=== PATIENT | male | born 1990 | race African-American/Black ===

== ENCOUNTER 2021-04-22 22:33 | Inpatient (IN) | payer MEDICARE, MEDICAID ==
[~2021-04-22] VITALS: Ht 190.5 cm; Wt 61.7 kg
[2021-04-23 00:04] LABS: BASOPHILS % 0.2 % (0.0-2.0); HEMATOCRIT. 40.3 % (42.0-52.0); HEMOGLOBIN. 14.3 g/dL (14.0-18.0); LYMPHOCYTES % 9.9 % (20.0-50.0); MEAN CORPUSCULAR HEMOGLOBIN 31.8 pg (28.0-32.0); MEAN CORPUSCULAR VOLUME 89.8 fL (80.0-94.0); MEAN PLATELET VOLUME 8.1 fl (7.4-10.4); MONOCYTES % 13.3 % (2.0-8.0); NEUTROPHILS % 76.6 % (40.0-76.0); PLATELET 220 x1000/uL (130-400); RED BLOOD CELL COUNT 4.49 mill/uL (4.7-6.1); RED CELL DISTRIBUTION WIDTH 13.5 % (11.6-14.6)
[2021-04-23 00:08] LABS: CHLORIDE 93 mEq/L (98-107)
[2021-04-23] MEDS ORDERED: MYCOC15 TP (00:10)
[2021-04-23] MEDS ORDERED: SODIUM CHLORIDE 0.9% 1,000 ML IV ONE (00:15)
[2021-04-23] MEDS ORDERED: FLUCONAZOLE 100MG TABLET PO ONE (00:30)
[2021-04-23] MEDS ORDERED: FLUCONAZOLE 150MG TABLET PO SCH (01:00)
[2021-04-23] MEDS ORDERED: KETOROLAC 30MG/ML VIAL IV ONE (01:45)
[2021-04-23] MEDS ORDERED: POTASSIUM CHLORIDE 20MEQ TABLET SR PO ONE (02:00)
[2021-04-23] MEDS ORDERED: LORAZEPAM 0.5MG TABLET PO PRN (08:15)
[2021-04-23] MEDS ORDERED: IPRATROPIUM/ALBUTEROL 0.5-3(2.5)MG/3ML NEB HHN PRN (08:15)
[2021-04-23] MEDS ORDERED: DOCUSATE SODIUM 100MG CAPSULE PO PRN (08:15)
[2021-04-23] MEDS ORDERED: CLONIDINE 0.1MG TABLET PO PRN (08:15)
[2021-04-23] MEDS ORDERED: ONDANSETRON HCL 4MG/2ML INJ IV PRN (08:15)
[2021-04-23 08:27] VITALS: BP 145/80
[2021-04-23] MEDS: HYDROCODONE/ACETAMINOPHEN 5/325MG TABLET PO PRN (11:08)
[2021-04-23 11:48] VITALS: BP 117/61
[2021-04-23 16:05] VITALS: BP 94/61
[2021-04-23 17:23] LABS: CLARITY URINE CLEAR (CLEAR); COLOR URINE ORANGE (YELLOW); KETONES URINE NEGATIVE (NEGATIVE); LEUKOCYTE ESTERASE URINE TRACE (NEGATIVE); NITRITE URINE NEGATIVE (NEGATIVE); OCCULT BLOOD URINE 3+ (NEGATIVE); PH URINE 6.5 (4.5-8.0); PROTEIN URINE 3+ (NEGATIVE); SPECIFIC GRAVITY URINE 1.016 (1.005-1.030)
[2021-04-23 17:36] LABS: *AMPHETAMINES SCREEN URINE NEGATIVE (NEGATIVE); *BARBITURATES SCREEN URINE NEGATIVE (NEGATIVE); *BENZODIAZEPINES SCREEN URINE NEGATIVE (NEGATIVE); *COCAINE SCREEN URINE NEGATIVE (NEGATIVE); CANNABINOID URINE SCREEN PRESUMTIVE POSITIVE (NEGATIVE); METHADONE URINE SCREEN NEGATIVE (NEGATIVE); OPIATES URINE SCREEN PRESUMTIVE POSITIVE (NEGATIVE); PHENCYCLIDINE URINE SCREEN NEGATIVE (NEGATIVE)
[2021-04-23 20:00] VITALS: BP 112/66
[2021-04-23] MEDS: ACETAMINOPHEN 325MG TABLET PO PRN (20:00)
[2021-04-23] MEDS: TRIAMCINOLONE ACETONIDE 0.025% OINT 15GM TOP SCH (20:19)
[2021-04-23 21:48] LABS: PHOSPHORUS 1.8 mg/dL (2.5-4.9)
[2021-04-24] VITALS (7 sets, daily range): BP systolic 104–132; BP diastolic 64–78
[2021-04-24] MEDS: ACETAMINOPHEN 325MG TABLET PO PRN ×4 (02:07→23:46)
[2021-04-24 06:38] LABS: HEMATOCRIT. 41.9 % (42.0-52.0); HEMOGLOBIN. 14.8 g/dL (14.0-18.0); MEAN CORPUSCULAR HEMOGLOBIN 32.2 pg (28.0-32.0); MEAN CORPUSCULAR VOLUME 91.3 fL (80.0-94.0); MEAN PLATELET VOLUME 9.1 fl (7.4-10.4); PLATELET 201 x1000/uL (130-400); RED BLOOD CELL COUNT 4.59 mill/uL (4.7-6.1); RED CELL DISTRIBUTION WIDTH 13.8 % (11.6-14.6)
[2021-04-24 07:21] LABS: CHLORIDE 96 mEq/L (98-107)
[2021-04-24] MEDS ORDERED: SODIUM PHOS,M-BASIC-D-BASIC 20 MM in DEXT 5% WATER 243.3333 ML IV SCH (10:00)
[2021-04-24] MEDS: HYDROCODONE/ACETAMINOPHEN 5/325MG TABLET PO PRN ×2 (10:03→19:03)
[2021-04-24] MEDS: TRIAMCINOLONE ACETONIDE 0.025% OINT 15GM TOP SCH ×2 (10:08→20:37)
[2021-04-24 13:06] LABS: PLATELET ESTIMATE NORMAL
[2021-04-24 15:18] LABS: HEPATITIS B SURFACE ANTIGEN NEGATIVE
[2021-04-24 15:48] LABS: HEPATITIS A AB IGM NEGATIVE (NEGATIVE)
[2021-04-24] MEDS: SODIUM CHLORIDE 0.9% 1,000 ML IV SCH ×2 (18:47→19:06)
[2021-04-24] MEDS: PIPERACILLIN/TAZOBACTAM 3.375G in DEXT 5% WATER 50ML IV SCH (18:48)
[2021-04-24] MEDS ORDERED: CEFTRIAXONE 2 G in DEXTROSE 5% WATER 50 ML IV SCH (20:00)
[2021-04-24] MEDS ORDERED: PIPERACILLIN/TAZOBACTAM 3.375 G/VIAL IV SCH (22:00)
[2021-04-25] MEDS: PIPERACILLIN/TAZOBACTAM 3.375G in DEXT 5% WATER 50ML IV SCH ×2 (02:44→12:57)
[2021-04-25 04:00] VITALS: BP 111/73
[2021-04-25 05:09] LABS: HIV SCREEN 4G Non Reactive (Non Reactive)
[2021-04-25 06:06] LABS: HEMATOCRIT. 39.9 % (42.0-52.0); HEMOGLOBIN. 13.7 g/dL (14.0-18.0); MEAN CORPUSCULAR HEMOGLOBIN 31.6 pg (28.0-32.0); MEAN CORPUSCULAR VOLUME 91.9 fL (80.0-94.0); MEAN PLATELET VOLUME 9.3 fl (7.4-10.4); PLATELET 233 x1000/uL (130-400); RED BLOOD CELL COUNT 4.34 mill/uL (4.7-6.1); RED CELL DISTRIBUTION WIDTH 14.4 % (11.6-14.6)
[2021-04-25 06:13] LABS: CHLORIDE 95 mEq/L (98-107)
[2021-04-25 06:22] LABS: PHOSPHORUS 2.4 mg/dL (2.5-4.9)
[2021-04-25 08:04] VITALS: BP 108/65
[2021-04-25] MEDS ORDERED: SODIUM CHLORIDE 0.9% 1,000 ML IV SCH (09:00)
[2021-04-25] MEDS: TRIAMCINOLONE ACETONIDE 0.025% OINT 15GM TOP SCH ×2 (09:17→21:41)
[2021-04-25] MEDS: SODIUM CHLORIDE 0.9% 1,000 ML IV SCH (09:18)
[2021-04-25] MEDS ORDERED: POTASSIUM-SODIUM PHOSPHATE POWDER PACKET PO NR (12:15)
[2021-04-25 12:30] VITALS: BP 111/70
[2021-04-25] MEDS ORDERED: IOHEXOL-300 100 ML BOTTLE ONE (14:41)
[2021-04-25 15:14] LABS: PLATELET ESTIMATE NORMAL
[2021-04-25] MEDS: MEROPENEM 1,000 MG in SODIUM CHLORIDE 0.9% 100 ML IV SCH (17:29)
[2021-04-25 20:00] VITALS: BP 114/64
[2021-04-26] VITALS: BP 112/61
[2021-04-26] MEDS: MEROPENEM 1,000 MG in SODIUM CHLORIDE 0.9% 100 ML IV SCH ×3 (00:27→17:48)
[2021-04-26] MEDS: SODIUM CHLORIDE 0.9% 1,000 ML IV SCH ×2 (00:28→13:50)
[2021-04-26 04:00] VITALS: BP 116/68
[2021-04-26 06:15] LABS: CHLORIDE 98 mEq/L (98-107)
[2021-04-26 06:22] LABS: HEMATOCRIT. 38.4 % (42.0-52.0); HEMOGLOBIN. 13.2 g/dL (14.0-18.0); MEAN CORPUSCULAR HEMOGLOBIN 31.5 pg (28.0-32.0); MEAN CORPUSCULAR VOLUME 91.2 fL (80.0-94.0); MEAN PLATELET VOLUME 9.1 fl (7.4-10.4); PLATELET 223 x1000/uL (130-400); RED BLOOD CELL COUNT 4.21 mill/uL (4.7-6.1); RED CELL DISTRIBUTION WIDTH 14.3 % (11.6-14.6)
[2021-04-26 06:23] LABS: AMYLASE 104 IU/L (25-115)
[2021-04-26 06:25] LABS: PHOSPHORUS 2.6 mg/dL (2.5-4.9)
[2021-04-26 08:00] VITALS: BP 107/64
[2021-04-26] MEDS: TRIAMCINOLONE ACETONIDE 0.025% OINT 15GM TOP SCH ×2 (08:36→22:30)
[2021-04-26] MEDS: HYDROCODONE/ACETAMINOPHEN 5/325MG TABLET PO PRN (08:38)
[2021-04-26] MEDS ORDERED: SODIUM CHLORIDE 0.9% 1,000 ML IV SCH (09:00)
[2021-04-26 12:00] VITALS: BP 102/47
[2021-04-26 13:12] LABS: ANTI-DNA DOUBLE STRANDED QUANT < 1 IU/mL (0-9)
[2021-04-26] MEDS: ACETAMINOPHEN 325MG TABLET PO PRN (13:51)
[2021-04-26 15:11] LABS: CREATINE KINASE 153279 IU/L (39-308)
[2021-04-26 16:00] VITALS: BP 106/67
[2021-04-26] MEDS ORDERED: PENICILLIN G BENZATHINE 2,400,000 UNITS/4ML SYR IM NR (17:00)
[2021-04-26 17:28] LABS: PLATELET ESTIMATE NORMAL
[2021-04-26 20:00] VITALS: BP 117/70
[2021-04-27] VITALS: BP 120/73
[2021-04-27] MEDS: MEROPENEM 1,000 MG in SODIUM CHLORIDE 0.9% 100 ML IV SCH ×4 (00:45→23:46)
[2021-04-27 04:00] VITALS: BP 109/69
[2021-04-27] MEDS: SODIUM CHLORIDE 0.9% 1,000 ML IV SCH ×3 (05:10→22:03)
[2021-04-27] MEDS: HYDROCODONE/ACETAMINOPHEN 5/325MG TABLET PO PRN (05:25)
[2021-04-27 06:47] LABS: CHLORIDE 99 mEq/L (98-107)
[2021-04-27 06:55] LABS: BASOPHILS % 0.2 % (0.0-2.0); HEMATOCRIT. 38.9 % (42.0-52.0); HEMOGLOBIN. 13.6 g/dL (14.0-18.0); LYMPHOCYTES % 9.4 % (20.0-50.0); MEAN CORPUSCULAR HEMOGLOBIN 31.8 pg (28.0-32.0); MEAN CORPUSCULAR VOLUME 90.8 fL (80.0-94.0); MEAN PLATELET VOLUME 8.9 fl (7.4-10.4); MONOCYTES % 8.4 % (2.0-8.0); PLATELET 271 x1000/uL (130-400); RED BLOOD CELL COUNT 4.28 mill/uL (4.7-6.1); RED CELL DISTRIBUTION WIDTH 14.5 % (11.6-14.6)
[2021-04-27 07:03] LABS: PHOSPHORUS 3.7 mg/dL (2.5-4.9)
[2021-04-27 07:04] LABS: T4 FREE 1.53 ng/dL (0.76-1.46)
[2021-04-27 08:00] VITALS: BP 102/60
[2021-04-27 08:59] LABS: CREATINE KINASE > 100000 IU/L (39-308)
[2021-04-27 09:07] LABS: ANA IFA Negative (.); GLOMERULAR BASEMENT MEMB AB 4 units (0-20)
[2021-04-27] MEDS: TRIAMCINOLONE ACETONIDE 0.025% OINT 15GM TOP SCH ×2 (10:28→22:03)
[2021-04-27 12:00] VITALS: BP 118/69
[2021-04-27] MEDS ORDERED: METHOTREXATE SODIUM 2 . 5MG TABLET PO SCH (13:00)
[2021-04-27 13:11] LABS: ANTI-MYELOPEROXIDASE AB < 9.0 U/mL (0.0-9.0); ANTI-PROTEINASE 3 ABS < 3.5 U/mL (0.0-3.5); ATYPICAL P-ANCA <1:20 titer (Neg:<1:20); CYTOPLASMIC C-ANCA <1:20 titer (Neg:<1:20); PERINUCLEAR P-ANCA <1:20 titer (Neg:<1:20)
[2021-04-27 13:11] LABS: EBV VIRAL CAPSID AB IGM <36.0 U/mL (0.0-35.9)
[2021-04-27] MEDS: METHYLPREDNISOLONE SOD SUCC 125 MG/2 ML VIAL IV SCH ×3 (13:56→23:46)
[2021-04-27 16:00] VITALS: BP 110/67
[2021-04-27 20:00] VITALS: BP 134/79
[2021-04-28] VITALS: BP 133/66
[2021-04-28 04:12] LABS: NEISSERIA GONORRHOEAE NAA Negative (Negative)
[2021-04-28] MEDS: METHYLPREDNISOLONE SOD SUCC 125 MG/2 ML VIAL IV SCH ×3 (06:46→16:45)
[2021-04-28] MEDS: SODIUM CHLORIDE 0.9% 1,000 ML IV SCH ×2 (06:46→16:53)
[2021-04-28 07:24] LABS: BASOPHILS % 0.3 % (0.0-2.0); HEMOGLOBIN. 13.4 g/dL (14.0-18.0); LYMPHOCYTES % 9.6 % (20.0-50.0); MEAN CORPUSCULAR HEMOGLOBIN 31.9 pg (28.0-32.0); MEAN CORPUSCULAR VOLUME 90.2 fL (80.0-94.0); MEAN PLATELET VOLUME 8.8 fl (7.4-10.4); MONOCYTES % 2.9 % (2.0-8.0); NEUTROPHILS % 87.2 % (40.0-76.0); PLATELET 335 x1000/uL (130-400); RED BLOOD CELL COUNT 4.21 mill/uL (4.7-6.1); RED CELL DISTRIBUTION WIDTH 14.7 % (11.6-14.6)
[2021-04-28 07:31] LABS: CHLORIDE 103 mEq/L (98-107)
[2021-04-28 07:50] LABS: PHOSPHORUS 3.4 mg/dL (2.5-4.9)
[2021-04-28 08:00] VITALS: BP 128/78
[2021-04-28] MEDS: FOLIC ACID 1MG TABLET PO SCH (08:58)
[2021-04-28] MEDS: MEROPENEM 1,000 MG in SODIUM CHLORIDE 0.9% 100 ML IV SCH ×2 (08:58→16:45)
[2021-04-28] MEDS: TRIAMCINOLONE ACETONIDE 0.025% OINT 15GM TOP SCH ×2 (08:59→20:28)
[2021-04-28] MEDS: METHOTREXATE SODIUM 2 . 5MG TABLET PO SCH ×3 (08:59→16:46)
[2021-04-28 10:02] LABS: CREATINE KINASE 97650 IU/L (39-308)
[2021-04-28] MEDS: HYDROCODONE/ACETAMINOPHEN 5/325MG TABLET PO PRN (12:55)
[2021-04-28 13:10] LABS: MYOGLOBIN SERUM 2646 ng/mL (28-72)
[2021-04-28] MEDS ORDERED: LOPERAMIDE HCL 2MG CAPSULE PO PRN (16:30)
[2021-04-28 20:00] VITALS: BP 119/67
[2021-04-29] VITALS: BP 138/90
[2021-04-29] MEDS: METHYLPREDNISOLONE SOD SUCC 125 MG/2 ML VIAL IV SCH ×5 (00:04→23:53)
[2021-04-29] MEDS: MEROPENEM 1,000 MG in SODIUM CHLORIDE 0.9% 100 ML IV SCH ×4 (00:04→23:53)
[2021-04-29] MEDS: SODIUM CHLORIDE 0.9% 1,000 ML IV SCH ×4 (00:08→21:36)
[2021-04-29 03:44] VITALS: BP 112/64
[2021-04-29 06:24] LABS: HEMATOCRIT. 37.9 % (42.0-52.0); HEMOGLOBIN. 13.1 g/dL (14.0-18.0); MEAN CORPUSCULAR HEMOGLOBIN 31.6 pg (28.0-32.0); MEAN CORPUSCULAR VOLUME 91.1 fL (80.0-94.0); MEAN PLATELET VOLUME 8.4 fl (7.4-10.4); PLATELET 458 x1000/uL (130-400); RED BLOOD CELL COUNT 4.16 mill/uL (4.7-6.1); RED CELL DISTRIBUTION WIDTH 14.9 % (11.6-14.6)
[2021-04-29 06:33] LABS: CHLORIDE 108 mEq/L (98-107)
[2021-04-29 06:39] LABS: PHOSPHORUS 3.9 mg/dL (2.5-4.9)
[2021-04-29 08:00] VITALS: BP 132/72
[2021-04-29 08:32] LABS: PLATELET ESTIMATE INCREASED
[2021-04-29 08:48] LABS: CREATINE KINASE 34761 IU/L (39-308)
[2021-04-29] MEDS: HYDROCODONE/ACETAMINOPHEN 5/325MG TABLET PO PRN (10:02)
[2021-04-29] MEDS: TRIAMCINOLONE ACETONIDE 0.025% OINT 15GM TOP SCH ×2 (10:03→21:36)
[2021-04-29] MEDS: FOLIC ACID 1MG TABLET PO SCH (10:03)
[2021-04-29 12:00] VITALS: BP 132/70
[2021-04-29 16:00] VITALS: BP 118/78
[2021-04-29 20:00] VITALS: BP 113/59
[2021-04-30] VITALS: BP 129/77
[2021-04-30] MEDS: HYDROCODONE/ACETAMINOPHEN 5/325MG TABLET PO PRN ×3 (00:01→11:45)
[2021-04-30 04:00] VITALS: BP 104/60
[2021-04-30] MEDS: METHYLPREDNISOLONE SOD SUCC 125 MG/2 ML VIAL IV SCH (05:56)
[2021-04-30] MEDS: SODIUM CHLORIDE 0.9% 1,000 ML IV SCH (05:58)
[2021-04-30 06:39] LABS: CHLORIDE 107 mEq/L (98-107)
[2021-04-30 06:40] LABS: BASOPHILS % 0.1 % (0.0-2.0); HEMATOCRIT. 36.4 % (42.0-52.0); HEMOGLOBIN. 12.8 g/dL (14.0-18.0); LYMPHOCYTES % 7.5 % (20.0-50.0); MEAN CORPUSCULAR HEMOGLOBIN 31.9 pg (28.0-32.0); MEAN CORPUSCULAR VOLUME 90.9 fL (80.0-94.0); MEAN PLATELET VOLUME 8.4 fl (7.4-10.4); MONOCYTES % 4.1 % (2.0-8.0); NEUTROPHILS % 88.3 % (40.0-76.0); PLATELET 448 x1000/uL (130-400); RED CELL DISTRIBUTION WIDTH 14.6 % (11.6-14.6)
[2021-04-30 06:59] LABS: PHOSPHORUS 3.5 mg/dL (2.5-4.9)
[2021-04-30 07:52] LABS: CREATINE KINASE 10941 IU/L (39-308)
[2021-04-30 08:00] VITALS: BP 113/79
[2021-04-30] MEDS: FOLIC ACID 1MG TABLET PO SCH (09:00)
[2021-04-30] MEDS: MEROPENEM 1,000 MG in SODIUM CHLORIDE 0.9% 100 ML IV SCH (09:00)
[2021-04-30] MEDS: TRIAMCINOLONE ACETONIDE 0.025% OINT 15GM TOP SCH (09:00)
[2021-04-30] MEDS ORDERED: P20 PO (11:51)
[2021-04-30] MEDS ORDERED: HYDR-4001 PO (11:51)
[2021-04-30] MEDS ORDERED: FOLI-43 PO (11:51)
[2021-04-30] MEDS ORDERED: METH2.5T PO (11:51)
[2021-04-30 12:00] VITALS: BP 123/86
[2021-04-30 12:07] VITALS: BP 113/79
[2021-04-30] MEDS ORDERED: PREDNISONE 20MG TABLET PO SCH (13:10)
[2021-04-30 15:09] LABS: ACTIN (SMOOTH MUSCLE) ANTIBODY 28 Units (0-19); ANTI-CARDIOLIPIN AB IGG 18 GPL U/mL (0-14); ANTI-CARDIOLIPIN AB IGM 69 MPL U/mL (0-12)
[2021-05-01 09:10] LABS: ALDOLASE < 1.2 U/L (3.3-10.3)
[2021-05-01 13:11] LABS: ANGIOTENSION CONVERTING ENZYME 54 U/L (14-82)
[2021-05-02 04:09] LABS: OVA & PARASITE EXAM Final report (.)
== END 2021-04-30 13:41 | disposition home health service (06) | DRG 872 ==
LOC: ER 22:33 → ENRESERV 04-23 07:20 → 6WST 04-23 08:57 → 7WST 04-23 18:35 → 8WST 04-25 00:41
PROVIDERS: ADMIT Internal Medicine; ATTEND Internal Medicine
DX: A41.9 Sepsis, unspecified organism (principal); E87.1 Hypo-osmolality and hyponatremia; B17.9 Acute viral hepatitis, unspecified; M62.82 Rhabdomyolysis; E44.0 Moderate protein-calorie malnutrition; Z68.1 Body mass index [BMI] 19.9 or less, adult; B34.9 Viral infection, unspecified; R65.20 Severe sepsis without septic shock; E87.6 Hypokalemia; D72.821 Monocytosis (symptomatic); D64.9 Anemia, unspecified; N18.1 Chronic kidney disease, stage 1; F32.9 Major depressive disorder, single episode, unspecified; D72.810 Lymphocytopenia; E83.39 Other disorders of phosphorus metabolism; Z20.822 Contact with and (suspected) exposure to COVID-19; N48.1 Balanitis; R59.1 Generalized enlarged lymph nodes; A53.0 Latent syphilis, unspecified as early or late; F12.90 Cannabis use, unspecified, uncomplicated; Z56.0 Unemployment, unspecified; Z87.891 Personal history of nicotine dependence; Z87.820 Personal history of traumatic brain injury; Z87.828 Personal history of other (healed) physical injury and trauma; Z82.49 Family history of ischemic heart disease and other diseases of the circulatory system; M60.9 Myositis, unspecified; R80.9 Proteinuria, unspecified
CPT/HCPCS: 36415; 71045; 71260; 73220; 73718; 74177; 76700; 80048; 80053; 80076; 80305; 81003; 82085; 82150; 82164; 82248; 82533; 82550; 82570; 83036; 83520; 83615; 83735; 84100; 84145; 84156; 84300; 84439; 84443; 84484; 84550; 85025; 85379; 85651; 86140; 86147; 86160; 86225; 86235; 86256; 86431; 86592; 86593; 86645; 86664; 86665; 86705; 86709; 86780; 86803; 87015; 87045; 87177; 87209; 87340; 87389; 87427; 87449; 87491; 87591; 89055; 97161; 97166; 99285; J0561; J0696; J1885; J2185; J2543; J2930; J3490; J7030; J7040; J7050; J7060; J8610; Q9967; U0003; U0005

== ENCOUNTER 2021-05-03 10:12 | Emergency (ER) | payer MEDICARE, MEDICAID ==
[~2021-05-03] VITALS: Ht 190.5 cm; Wt 57.0 kg
[~2021-05-03 10:12] MED LIST: FOLI-43 PO; HYDR-4001 PO; METH2.5T PO; P20 PO
[2021-05-03] MEDS ORDERED: PENICILLIN G BENZATHINE 2,400,000 UNITS/4ML SYR IM ONE (10:45)
[2021-05-03 11:17] VITALS: BP 111/71
== END 2021-05-03 11:17 | disposition home or self-care (01) ==
LOC: ER 10:12
DX: A53.9 Syphilis, unspecified (principal)
CPT/HCPCS: 96372; 99283; J0561

== ENCOUNTER 2021-05-10 09:14 | Emergency (ER) | payer MEDICARE, MEDICAID ==
[~2021-05-10] VITALS: Ht 190.5 cm; Wt 59.0 kg
[2021-05-10 09:48] VITALS: BP 111/69
[2021-05-10] MEDS ORDERED: PENICILLIN G BENZATHINE 2,400,000 UNITS/4ML SYR IM ONE (10:30)
== END 2021-05-10 11:46 | disposition home or self-care (01) ==
LOC: ER 09:14
DX: Z51.89 Encounter for other specified aftercare (principal); A53.9 Syphilis, unspecified; F12.10 Cannabis abuse, uncomplicated
CPT/HCPCS: 96372; 99283; J0561